=== PATIENT | male | born 1925 | race Hispanic/Latino ===

== ENCOUNTER 2017-01-17 20:39 | Inpatient (IN) | payer MEDICARE ==
[2017-01-17] MEDS ORDERED: Sodium Chloride 0.9% 1,000 ML IV STA (21:28)
[2017-01-17] MEDS ORDERED: Iohexol 240 (50 ml) PO ONE (21:29)
[2017-01-17 21:55] LABS: BASO % 0.4 % (0.0-2.0); EOS # 0.1 K/uL (0.0-0.7); EOS % 0.7 % (0.0-4.0); HEMATOCRIT 40.3 % (35.0-51.0); LYMPH # 1.3 K/uL (1.0-4.3); MEAN CELL VOLUME 95.7 fl (80.0-94.0); MEAN CORPUSCULAR HEMOGLOBIN 31.5 pg (27.0-31.0); MEAN CORPUSCULAR HGB CONC 32.9 g/dL (33.0-37.0); MEAN PLATELET VOLUME 9.3 fl (7.2-11.7); MONO # 0.9 K/uL (0.0-0.8); MONO % 9.6 % (0.0-10.0); NEUT # 7.5 K/uL (1.8-7.0); NEUT % 76.3 % (50.0-75.0); RED CELL DISTRIBUTION WIDTH 14.4 % (11.5-14.5); WHITE BLOOD COUNT 9.8 K/uL (4.8-10.8)
[2017-01-17] MEDS ORDERED: Iohexol 240 (50 ml) ONE (22:16)
--- NOTE | 2017-01-17 22:19 | ED PDOC ---
HPI: Abdomen Time Seen by Provider: 01/17/17 21:09 Chief Complaint (Nursing): GI Problem Chief Complaint (Provider): Diarrhea and nausea History Per: Family History/Exam Limitations: no limitations Onset/Duration Of Symptoms: Days (x 5) Current Symptoms Are (Timing): Still Present Associated Symptoms: Nausea, Diarrhea Additional Complaint(s): Marshall is an 89 y/o male with a past medical history of colon cancer, esophageal cancer, cardiac disease, and diabetes, who presents to the ED for complaints of diarrhea. Family states he is having 4-5 episodes of watery diarrhea daily since Saturday. Also complaining of generalized weakness and nausea. Seen by PMD, Dr. Ashby who prescribed him Zofran and Pepcid. Later, patient told his son I dont think Im going to make it prompting this ED visit. PMD: Isma Past Medical History Reviewed: Historical Data, Nursing Documentation, Vital Signs Vital Signs: Last Vital Signs Temp 97.6 F 01/17/17 20:57 Pulse 72 01/18/17 00:32 Resp 16 01/18/17 00:32 BP 122/81 01/18/17 00:32 Pulse Ox 97 01/18/17 01:43 - Medical History PMH: COPD, HTN, Hypercholesterolemia Denies: Chronic Kidney Disease - Surgical History Surgical History: CABG (x3), Carotid Endarterectomy (Left), Coronary Stent (x6) - Family History Family History: States: Unknown Family Hx - Home Medications Home Medications: Ambulatory Orders Medication Instructions Recorded Acetaminophen/Codeine 1 tab PO Q4H 02/04/14 [Tylenol/Codeine 300 MG/30 MG] Amlodipine Besylate 10 mg PO DAILY 02/04/14 Hydralazine Hydrochloride 25 mg PO BID 02/04/14 [Hydralazine HCl] Metformin Hydrochloride/Fadia 1 tab PO DAILY 02/04/14 [Janumet 500 mg-50 mg] Pravastatin Sodium [Pravastatin] 40 mg PO DAILY 02/04/14 - Allergies Allergies/Adverse Reactions: Allergies Allergy/AdvReac Type Severity Reaction Status Date / Time No Known Allergies Allergy Verified 02/04/14 08:48 Review of Systems ROS Statement: Except As Marked, All Systems Reviewed And Found Negative Constitutional: Negative for: Fever Gastrointestinal: Positive for: Nausea, Diarrhea Neurological: Positive for: Weakness (generalized) Physical Exam - Reviewed Nursing Documentation Reviewed: Yes Vital Signs Reviewed: Yes - Physical Exam Appears: Positive for: Non-toxic, No Acute Distress Head Exam: Positive for: ATRAUMATIC, NORMAL INSPECTION, NORMOCEPHALIC Skin: Positive for: Normal Color, Warm, Dry Eye Exam: Positive for: EOMI, Normal appearance, PERRL ENT: Positive for: Other (dry mucus membranes) Neck: Positive for: Normal, Painless ROM, Supple Cardiovascular/Chest: Positive for: Regular Rate, Rhythm. Negative for: Murmur Respiratory: Positive for: Normal Breath Sounds. Negative for: Accessory Muscle Use, Respiratory Distress Gastrointestinal/Abdominal: Positive for: Soft, Tenderness (to epigastric region ) Back: Positive for: Normal Inspection Extremity: Positive for: Normal ROM. Negative for: Pedal Edema, Deformity Neurologic/Psych: Positive for: Alert, Oriented. Negative for: Motor/Sensory Deficits - Laboratory Results Result Diagrams: 01/17/17 21:35 01/17/17 22:00 - ECG O2 Sat by Pulse Oximetry: 97 (RA) Pulse Ox Interpretation: Normal - Radiology X-Ray: Interpreted by De X-Ray Interpretation: No Acute Disease - Critical Care Total Time (In Min): 60 Medical Decision Making Medical Decision Making: Time: 21:27 Impression: Gastroenteritis Initial Plan: --CMP --Lipase --Troponin I --CBC --Blood type and screen --NS IV 1000 ml at 500 mls/hr --Iohexol 50 ml PO --Protonix 40 mg IV --Reglan 10 mg IV --Urinalysis --Blood and urine cultures --CXR 2 views --EKG --Patient admitted to ED-OBS for abdominal pain --Pending CT Abdomen/Pelvis PO & IV contrast *See ED-OBS tab for all future documentation Scribe Attestation: Documented by Liseth Pro, acting as a scribe for Laureano Cazares MD Provider Scribe Attestation: All medical record entries made by the Scribe were at my direction and personally dictated by me. I have reviewed the chart and agree that the record accurately reflects my personal performance of the history, physical exam, medical decision making, and the department course for this patient. I have also personally directed, reviewed, and agree with the discharge instructions and disposition. ED OBSERVATION Date of observation admission: 01/17/17 Time of observation admission: 21:27 - Observation admission statement Patient is being placed in observation because:: Abdominal pain - Goals of Observation Goals of observation are:: Resolution of symptoms - Progress Note Progress Note: 01/17/17 21:30 Patient is resting comfortably. Vital signs stable. Labs reviewed, significant for elevated Troponin 01/17/17 22:49 Paged Cardiology on-call, Dr. Noble, for consult 01/17/17 23:15 Patient with elevated troponin and ST depression in lead 6 of EKG. Spoke with Dr. Huber who recommends ASA and Lipitor now and wait for CT scan to r/o pancreatitis or other surgical pathology. If negative, anticoagulate with Heprin. 01/18/17 00:40 Patient is resting comfortably. Vital signs stable. 01/18/17 01:20 CT FINDINGS There is a small left pleural effusion with associated atelectasis. The liver, spleen, gallbladder, and pancreas appear grossly normal on this non- contrast study. There is mild bilateral perinephric stranding. No hydronephrosis. No obstructing calculi. Subcentimeter hypoattenuating lower right renal lesion unchanged. The patient appears to be status post right hemicolectomy. Gastric distention with oral contrast and ingested material. There is diffuse distention of the small bowel with fluid through to the anastomosis with the proximal transverse colon. There is stool present within a few distal small bowel loops in the right abdomen/pelvis. A small amount of fluid is present in the colon; however it is essentially unremarkable without significant dilation, wall thickening or stranding. IMPRESSION: Small left pleural effusion with atelectasis. Right hemicolectomy. Diffuse distention of the small bowel with fluid. Small bowel ileus or diffuse enteritis could produce this appearance. Disposition - Clinical Impression Clinical Impression: NSTEMI (non-ST elevated myocardial infarction), Enteritis, Acute renal failure - Patient ED Disposition Is Patient to be Admitted: Yes - Disposition Disposition Time: 21:27 Condition: FAIR - Pt Status Changed To: Hospital Disposition Of: Observation
[2017-01-17 22:22] LABS: ALB/GLOB RATIO 1.3 (1.0-2.1); BILIRUBIN,TOTAL 0.6 mg/dl (0.2-1.3); CALCIUM 10.1 mg/dL (8.4-10.2); POTASSIUM 4.2 MMOL/L (3.6-5.0); TOTAL PROTEIN 8.2 G/DL (6.3-8.2)
[2017-01-17 22:36] LABS: TROPONIN I 4.65 ng/mL (0.00-0.120)
[2017-01-17 22:54] LABS: RBC URINE 3 /hpf (0-3); URINE BACTERIA RARE (<OCC); URINE BILIRUBIN NEGATIVE (NEGATIVE); URINE BLOOD NEGATIVE (NEGATIVE); URINE COLOR AMBER (YELLOW); URINE GLUCOSE (UA) NEG (Normal); URINE KETONE NEGATIVE (NEGATIVE); URINE LEUKOCYTE ESTERASE NEG Leu/uL (Negative); URINE PROTEIN 100 mg/dL (NEGATIVE); URINE UROBILINOGEN 0.2-1.0 mg/dL (0.2-1.0); WBC URINE 2 /hpf (0-5)
--- NOTE | 2017-01-18 01:20 | CT ---
EXAM: CT Abdomen and Pelvis Without Intravenous Contrast EXAM DATE/TIME: 01/17/2017 9:27 PM CLINICAL HISTORY: 89 years old, male; Pain; Abdominal pain; Epigastric; Prior surgery; Surgery date: 6+ months; Surgery type: Cabgx3 coronary stent; Patient HX: Chart inluded; Additional info: Epig pain TECHNIQUE: Axial computed tomography images of the abdomen and pelvis without intravenous contrast. All CT scans at this facility use one or more dose reduction techniques, viz.: automated exposure control; ma/kV adjustment per patient size (including targeted exams where dose is matched to indication; i.e. head); or iterative reconstruction technique. Coronal and sagittal reformatted images were created and reviewed. COMPARISON: CT ABD/PELV W/ ORAL A 10/23/2011 8:30:07 PM no report FINDINGS: There is a small left pleural effusion with associated atelectasis. The liver, spleen, gallbladder, and pancreas appear grossly normal on this non-contrast study. There is mild bilateral perinephric stranding. No hydronephrosis. No obstructing calculi. Subcentimeter hypoattenuating lower right renal lesion unchanged. The patient appears to be status post right hemicolectomy. Gastric distention with oral contrast and ingested material. There is diffuse distention of the small bowel with fluid through to the anastomosis with the proximal transverse colon. There is stool present within a few distal small bowel loops in the right abdomen/pelvis. A small amount of fluid is present in the colon; however it is essentially unremarkable without significant dilation, wall thickening or stranding. IMPRESSION: Small left pleural effusion with atelectasis. Right hemicolectomy. Diffuse distention of the small bowel with fluid. Small bowel ileus or diffuse enteritis could produce this appearance.
--- NOTE | 2017-01-18 01:41 | CP.PCM.HP ---
<Alber Hull - Last Filed: 01/18/17 06:13> History of Present Illness - History of Present Illness History of Present Illness: CC: NSTEMI 89 y/o male with a past medical history of colon cancer, esophageal cancer, cardiac disease, and diabetes admitted due to NSTEMI Patient initially presented to ED for evaluation of NBNB diarrhea. 4-5 episodes of watery diarrhea daily since Saturday. Also complained of generalized weakness and nausea. Found to have elevated initial troponin and NSTEMI in ED, along with increased lipase levels. CT abdo was negative for pancreatitis. ED Course: Lipase, CBC, cmp troponins Blood type and screen NS IV 1000 ml at 500 mls/hr Protonix 40 mg IV Reglan 10 mg IV Urinalysis Blood and urine cultures CXR 2 views EKG: ST depression in lead 6 of EKG + initial troponin of 4 01/17/17 22:49 Cardiology on-call, Dr. Noble, for consult 01/17/17 23:15 Patient with elevated troponin and ST depression in lead 6 of EKG. Spoke with Dr. Huber who recommends ASA and Lipitor now and wait for CT scan to r/o pancreatitis or other surgical pathology. If negative, anticoagulate with Heprin. PMD: Dr Ashby Present on Admission - Present on Admission Any Indicators Present on Admission: No History of DVT/PE: No Past Patient History - Past Medical History & Family History Past Medical History?: Yes - Past Social History Smoking Status: Never Smoked - CARDIAC Hx Hypercholesterolemia: Yes Hx Hypertension: Yes - PULMONARY Hx Chronic Obstructive Pulmonary Disease (COPD): Yes - NEUROLOGICAL Hx Neurological Disorder: Yes HX Cerebrovascular Accident: Yes (mini stroke wR small finger numb) - HEENT Hx HEENT Problems: No - RENAL Hx Chronic Kidney Disease: No - ENDOCRINE/METABOLIC Hx Endocrine Disorders: Yes Hx Diabetes Mellitus Type 2: Yes - HEMATOLOGICAL/ONCOLOGICAL Hx Blood Transfusions: Yes Hx Cancer: Yes (Colon) Hx Chemotherapy: Yes - INTEGUMENTARY Hx Dermatological Problems: No - MUSCULOSKELETAL/RHEUMATOLOGICAL Hx Musculoskeletal Disorders: No - GASTROINTESTINAL Other/Comment: Colon CA - GENITOURINARY/GYNECOLOGICAL Hx Genitourinary Disorders: No - PSYCHIATRIC Hx Psychophysiologic Disorder: No Hx Substance Use: No - SURGICAL HISTORY Hx Carotid Endarterectomy: Yes (Left) Hx Coronary Artery Bypass Graft: Yes (x3) Hx Coronary Stent: Yes (x6) - ANESTHESIA Hx Anesthesia: Yes Hx Anesthesia Reactions: No Hx Malignant Hyperthermia: No Meds Allergies/Adverse Reactions: Allergies Allergy/AdvReac Type Severity Reaction Status Date / Time No Known Allergies Allergy Verified 02/04/14 08:48 Physical Exam - Constitutional Appears: No Acute Distress, Chronically Ill - Head Exam Head Exam: ATRAUMATIC - Eye Exam Eye Exam: EOMI Pupil Exam: PERRL - ENT Exam ENT Exam: Mucous Membranes Dry - Respiratory Exam Respiratory Exam: Clear to Auscultation Bilateral - Cardiovascular Exam Cardiovascular Exam: +S1, +S2 - GI/Abdominal Exam GI & Abdominal Exam: Hyperactive Bowel Sounds, Soft, Tenderness Additional comments: epigastric tenderness - Extremities Exam Extremities exam: Positive for: pedal pulses present - Neurological Exam Neurological exam: Alert, Oriented x3 - Psychiatric Exam Psychiatric exam: Normal Affect, Normal Mood - Skin Skin Exam: Dry, Warm Results - Vital Signs Recent Vital Signs: Last Vital Signs Temp 97.6 F 01/17/17 20:57 Pulse 72 01/18/17 00:32 Resp 16 01/18/17 00:32 BP 122/81 01/18/17 00:32 Pulse Ox 97 01/18/17 01:21 - Labs Result Diagrams: 01/17/17 21:35 01/17/17 22:00 Labs: Laboratory Results - last 24 hr 01/17/17 01/17/17 01/17/17 21:35 21:35 22:00 WBC 9.8 RBC 4.21 L Hgb 13.3 Hct 40.3 MCV 95.7 H MCH 31.5 H MCHC 32.9 L RDW 14.4 Plt Count 203 MPV 9.3 Neut % (Auto) 76.3 H Lymph % (Auto) 13.0 L Placer % (Auto) 9.6 Eos % (Auto) 0.7 Baso % (Auto) 0.4 Neut # 7.5 H Lymph # 1.3 Placer # 0.9 H Eos # 0.1 Baso # 0.0 Sodium 139 Potassium 4.2 Chloride 104 Carbon Dioxide 21 L Anion Gap 18 BUN 29 H Creatinine 1.7 H Est GFR ( Amer) 46 Est GFR (Non-Af Amer) 38 Random Glucose 122 H Calcium 10.1 Total Bilirubin 0.6 AST 61 H ALT 32 Alkaline Phosphatase 55 Troponin I 4.6500 H* Total Protein 8.2 Albumin 4.6 Globulin 3.6 Albumin/Globulin Ratio 1.3 Lipase 400 H Urine Color Urine Clarity Urine pH Ur Specific [place] Urine Protein Urine Glucose (UA) Urine Ketones Urine Blood Urine Nitrate Urine Bilirubin Urine Urobilinogen Ur Leukocyte Esterase Urine RBC (Auto) Urine Microscopic WBC Ur Squamous Epith Cells Urine Bacteria Hyaline Casts Blood Type B POSITIVE Antibody Screen Negative BBK History Checked Patient has bt 01/17/17 22:30 WBC RBC Hgb Hct MCV MCH MCHC RDW Plt Count MPV Neut % (Auto) Lymph % (Auto) Placer % (Auto) Eos % (Auto) Baso % (Auto) Neut # Lymph # Placer # Eos # Baso # Sodium Potassium Chloride Carbon Dioxide Anion Gap BUN Creatinine Est GFR ( Amer) Est GFR (Non-Af Amer) Random Glucose Calcium Total Bilirubin AST ALT Alkaline Phosphatase Troponin I Total Protein Albumin Globulin Albumin/Globulin Ratio Lipase Urine Color [place] Urine Clarity Cloudy Urine pH 5.0 Ur Specific [place] 1.020 Urine Protein 100 Urine Glucose (UA) Neg Urine Ketones Negative Urine Blood Negative Urine Nitrate Negative Urine Bilirubin Negative Urine Urobilinogen 0.2-1.0 Ur Leukocyte Esterase Neg Urine RBC (Auto) 3 Urine Microscopic WBC 2 Ur Squamous Epith Cells < 1 Urine Bacteria Rare Hyaline Casts 3-5 H Blood Type Antibody Screen BBK History Checked Assessment & Plan - Assessment and Plan (Free Text) Plan: 89 y/o male with a past medical history of colon cancer, esophageal cancer, cardiac disease, and diabetes admitted due to NSTEMI NSTEMI EKG: ST depression in lead 6 of EKG + initial troponin of 4 ED Course: Lipase 400, CBC, cmp Blood type and screen NS IV 1000 ml at 500 mls/hr Protonix 40 mg IV Reglan 10 mg IV Urinalysis Blood and urine cultures CXR CT abdo: negative for pancreatitis Cardiology consulted: Dr. Noble, recommends ASA and Lipitor, anticoagulate with Heprin admit to ICU npo c/w heparin drip 8ml/hr, lipitor 20 mg daily, coreg 6.25 PO Q12 troponins Q8 x 2 ECHO in AM repeat labs in AM Enteritis gastroenteritis v. C diff IVF follow up with BCx, stool Cx DM c/w home meds CAD c/w home meds DVT PPx pt on heparin drip <Leonid Ashby - Last Filed: 01/21/17 06:48> Results - Vital Signs Recent Vital Signs: Last Vital Signs Temp 97.9 F 01/21/17 04:43 Pulse 49 L 01/21/17 04:43 Resp 20 01/21/17 04:43 BP 164/57 H 01/21/17 04:43 Pulse Ox 96 01/21/17 04:43 - Labs Result Diagrams: 01/19/17 06:00 01/19/17 06:00 Labs: Laboratory Results - last 24 hr 01/20/17 01/20/17 01/20/17 05:30 11:13 15:54 APTT 32.5 D POC Glucose (mg/dL) 259 H 215 H 01/20/17 01/21/17 21:31 05:11 APTT POC Glucose (mg/dL) 128 H 122 H Attending/Attestation - Attestation I have personally seen and examined this patient.: Yes I have fully participated in the care of the patient.: Yes I have reviewed all pertinent clinical information: Yes
--- NOTE | 2017-01-18 01:44 | CP.PCM.CON ---
History of Present Illness - History of Present Illness History of Present Illness: PCP; Dr Ashby Reason For Consult: Critical care Management Chief Complaint: Diarrhea/Dizziness HPI: 89 years old male with hx of HLD, HTN, DM II, CAD s/p Stents and CABG, comes with 5 days of non- bloody diarrhea, 4-5 episodes daily. associated is nausea with generalized weakness but no abdominal pains, fever, diaphoresis, nor actual vomiting. No chest pains nor palpitations. He saw his PCP who prescribed Zofran and Pepcid. Because of the persistence of the symptoms he was brought to the ED at [facility]. PMH: COPD; HTN; HLD;COPD: CVA; DM II; Colon and esophageal Cancer s/p Chemo and radiotherapy, no surgery to the abdomen; PSH: CABG (x3), 6X Stents, Left Carotid Endarterectomy , Coronary Stent (x6); cataract surgery SH: Live with family, Quit smoking 45 years ago; Occasional alcohol use; No illegal drug use; FH: Unknown family hx Allergies: NKDA Review of Systems - Constitutional Constitutional: Anorexia, Headache, Weakness. absent: Chills, Fever, Lethargy - EENT Eyes: Requires Corrective Lenses. absent: Diplopia, Floaters, Sees Flashes Ears: absent: Decreased Hearing, Ear Discharge, Ear Pain, Tinnitus Nose/Mouth/Throat: absent: Epistaxis, Nasal Congestion, Sinus Pain, Sinus Pressure Additional comments: Upper and lower dentures - Cardiovascular Cardiovascular: Chest Pain, Dyspnea, Edema, Lightheadedness - Respiratory Respiratory: Cough. absent: Stridor, Chest Congestion - Gastrointestinal Gastrointestinal: Diarrhea, Nausea. absent: Constipation, Hematochezia, Vomiting - Genitourinary Genitourinary: absent: Dysuria, Flank Pain, Hematuria, Urinary Frequency - Musculoskeletal Musculoskeletal: Muscle Weakness. absent: Arthralgias, Back Pain - Integumentary Integumentary: absent: Pruritus, Rash, Skin Ulcer, Sores, Striae, Swelling - Neurological Neurological: Dizziness, Headaches, Weakness. absent: Confusion, Focal Weakness - Psychiatric Psychiatric: absent: Anxiety, Depression, Panic Attacks - Endocrine Endocrine: absent: Palpitations, Polydipsia, Polyphagia, Polyuria - Hematologic/Lymphatic Hematologic: absent: Easy Bleeding, Easy Bruising Past Patient History - Past Medical History & Family History Past Medical History?: Yes - Past Social History Smoking Status: Former Smoker Chewing Tobacco Use: No Cigar Use: No Alcohol: Occasional Drugs: Denies Home Situation {Lives}: With Family - CARDIAC Hx Hypercholesterolemia: Yes Hx Hypertension: Yes - PULMONARY Hx Chronic Obstructive Pulmonary Disease (COPD): Yes - NEUROLOGICAL Hx Neurological Disorder: Yes HX Cerebrovascular Accident: Yes (mini stroke wR small finger numb) - HEENT Hx HEENT Problems: No - RENAL Hx Chronic Kidney Disease: No - ENDOCRINE/METABOLIC Hx Endocrine Disorders: Yes Hx Diabetes Mellitus Type 2: Yes - HEMATOLOGICAL/ONCOLOGICAL Hx Blood Transfusions: Yes Hx Cancer: Yes (Colon) Hx Chemotherapy: Yes - INTEGUMENTARY Hx Dermatological Problems: No - MUSCULOSKELETAL/RHEUMATOLOGICAL Hx Musculoskeletal Disorders: No - GASTROINTESTINAL Hx Gastrointestinal Disorders: No Other/Comment: Colon CA - GENITOURINARY/GYNECOLOGICAL Hx Genitourinary Disorders: No - PSYCHIATRIC Hx Psychophysiologic Disorder: No Hx Substance Use: No - SURGICAL HISTORY Hx Carotid Endarterectomy: Yes (Left) Hx Coronary Artery Bypass Graft: Yes (x3) Hx Coronary Stent: Yes (x6) - ANESTHESIA Hx Anesthesia: Yes Hx Anesthesia Reactions: No Hx Malignant Hyperthermia: No Meds Allergies/Adverse Reactions: Allergies Allergy/AdvReac Type Severity Reaction Status Date / Time No Known Allergies Allergy Verified 02/04/14 08:48 - Medications Medications: Current Medications Atorvastatin Calcium (Lipitor) 20 mg PO DAILY NOAH Carvedilol (Coreg) 6.25 mg PO Q12 NOAH Heparin Sodium/Dextrose (Heparin 25,000 Units/250ml In D5w) 25,000 units in 250 mls @ 8 mls/hr IV .Q24H NOAH PRN Reason: Protocol Physical Exam - Constitutional Appears: No Acute Distress - Head Exam Head Exam: ATRAUMATIC, NORMAL INSPECTION, NORMOCEPHALIC - Eye Exam Eye Exam: EOMI, Normal appearance Pupil Exam: NORMAL ACCOMODATION, PERRL - ENT Exam ENT Exam: Mucous Membranes Dry, Normal Exam, Normal External Ear Exam, Normal Oropharynx - Neck Exam Neck exam: Positive for: Full Rom, Normal Inspection. Negative for: Lymphadenopathy, Tenderness - Respiratory Exam Respiratory Exam: absent: Clear to Auscultation Bilateral, Rales, Rhonchi, Wheezes - Cardiovascular Exam Cardiovascular Exam: REGULAR RHYTHM, RRR, +S1, +S2. absent: Gallop, JVD - GI/Abdominal Exam GI & Abdominal Exam: Normal Bowel Sounds, Soft. absent: Organomegaly, Tenderness - Rectal Exam Rectal Exam: Deferred - Extremities Exam Extremities exam: Positive for: normal inspection. Negative for: calf tenderness, full ROM, joint swelling - Back Exam Back exam: CVA tenderness (L), CVA tenderness (R), NORMAL INSPECTION - Neurological Exam Neurological exam: Alert, CN II-XII Intact, Oriented x3, Reflexes Normal - Psychiatric Exam Psychiatric exam: Normal Affect, Normal Mood - Skin Skin Exam: Dry, Intact, Normal Color, Warm Results - Vital Signs Recent Vital Signs: Last Vital Signs Temp 97.6 F 01/17/17 20:57 Pulse 72 01/18/17 00:32 Resp 16 01/18/17 00:32 BP 122/81 01/18/17 00:32 Pulse Ox 97 01/18/17 01:43 - Labs Result Diagrams: 01/17/17 21:35 01/17/17 22:00 Labs: Laboratory Results - last 24 hr 01/17/17 01/17/17 01/17/17 21:35 21:35 22:00 WBC 9.8 RBC 4.21 L Hgb 13.3 Hct 40.3 MCV 95.7 H MCH 31.5 H MCHC 32.9 L RDW 14.4 Plt Count 203 MPV 9.3 Neut % (Auto) 76.3 H Lymph % (Auto) 13.0 L [place] % (Auto) 9.6 Eos % (Auto) 0.7 Baso % (Auto) 0.4 Neut # 7.5 H Lymph # 1.3 [place] # 0.9 H Eos # 0.1 Baso # 0.0 Sodium 139 Potassium 4.2 Chloride 104 Carbon Dioxide 21 L Anion Gap 18 BUN 29 H Creatinine 1.7 H Est GFR ( Amer) 46 Est GFR (Non-Af Amer) 38 Random Glucose 122 H Calcium 10.1 Total Bilirubin 0.6 AST 61 H ALT 32 Alkaline Phosphatase 55 Troponin I 4.6500 H* Total Protein 8.2 Albumin 4.6 Globulin 3.6 Albumin/Globulin Ratio 1.3 Lipase 400 H Urine Color Urine Clarity Urine pH Ur Specific [place] Urine Protein Urine Glucose (UA) Urine Ketones Urine Blood Urine Nitrate Urine Bilirubin Urine Urobilinogen Ur Leukocyte Esterase Urine RBC (Auto) Urine Microscopic WBC Ur Squamous Epith Cells Urine Bacteria Hyaline Casts Blood Type B POSITIVE Antibody Screen Negative BBK History Checked Patient has bt 01/17/17 22:30 WBC RBC Hgb Hct MCV MCH MCHC RDW Plt Count MPV Neut % (Auto) Lymph % (Auto) [place] % (Auto) Eos % (Auto) Baso % (Auto) Neut # Lymph # [place] # Eos # Baso # Sodium Potassium Chloride Carbon Dioxide Anion Gap BUN Creatinine Est GFR ( Amer) Est GFR (Non-Af Amer) Random Glucose Calcium Total Bilirubin AST ALT Alkaline Phosphatase Troponin I Total Protein Albumin Globulin Albumin/Globulin Ratio Lipase Urine Color [place] Urine Clarity Cloudy Urine pH 5.0 Ur Specific [place] 1.020 Urine Protein 100 Urine Glucose (UA) Neg Urine Ketones Negative Urine Blood Negative Urine Nitrate Negative Urine Bilirubin Negative Urine Urobilinogen 0.2-1.0 Ur Leukocyte Esterase Neg Urine RBC (Auto) 3 Urine Microscopic WBC 2 Ur Squamous Epith Cells < 1 Urine Bacteria Rare Hyaline Casts 3-5 H Blood Type Antibody Screen BBK History Checked - EKG Data EKG comments: NSR with RBBB and LAD - Imaging and Cardiology Chest x-ray Status: Image reviewed by me Additional comment: No Infiltrate CT scan - abdomen Additional comment: FINDINGS: There is a small left pleural effusion with associated atelectasis. The liver, spleen, gallbladder, and pancreas appear grossly normal on this non- contrast study. There is mild bilateral perinephric stranding. No hydronephrosis. No obstructing calculi. Subcentimeter hypoattenuating lower right renal lesion unchanged. The patient appears to be status post right hemicolectomy. Gastric distention with oral contrast and ingested material. There is diffuse distention of the small bowel with fluid through to the anastomosis with the proximal transverse colon. There is stool present within a few distal small bowel loops in the right abdomen/pelvis. A small amount of fluid is present in the colon; however it is essentially unremarkable without significant dilation, wall thickening or stranding. IMPRESSION: Small left pleural effusion with atelectasis. Right hemicolectomy. Diffuse distention of the small bowel with fluid. Small bowel ileus or diffuse enteritis could produce this appearance. Assessment & Plan - Assessment and Plan (Free Text) Assessment: #. Diffuse Enteritis #. NSTEMI #. Acute Renal Failure #. DM #. HTN Plan: 89 years old male with hx of HLD, HTN, DM II, CAD s/p Stents and CABG, comes with 5 days of non- bloody diarrhea, 4-5 episodes daily. associated is nausea with generalized weakness. No abdominal pains, fever, diaphoresis, nor chest pains. #. Diffuse Enteritis, etiology unclear - Follow stool for Culture/ C Difficile toxins - IV Fluids - Zofran for nausea and vomiting #. NSTEMI - Consult cardiology Dr Noble - Serial Troponin - Serial EKG - Lipid profile - ECHO - ASA/ Statin/ Heparin IV drip/ Beta Esmer #. Acute Renal Failure - IV Fluid - Follow Renal labs #. DM II - Diabetic Diet - Regular Insulin Sliding scale according to accucheck - Hold Metformin because of the elevated Creatinine. - HbA1c #. HTN - Amlodipine/ Coreg/Hydralazine #. Stress Ulcer prophylaxis with Pantoprazole #. Code status: Full - Date & Time Date: 01/18/17 Time: 01:43
[2017-01-18] MEDS: Heparin 25,000units in D5W 25,000 UNITS/250 ML BAG IV SCH (01:52)
[2017-01-18 03:21] VITALS: BMI 22.6
[2017-01-18 03:25] LABS: PARTIAL THROMBOPLASTIN TIME 148.9 Seconds (25.6-37.1)
[2017-01-18] MEDS: Sodium Chloride 0.9% 1,000 ML IV SCH ×2 (04:18→16:40)
[2017-01-18 05:57] LABS: TROPONIN I 3.67 ng/mL (0.00-0.120)
[2017-01-18 06:15] LABS: HEMATOCRIT 34.3 % (35.0-51.0); MEAN CELL VOLUME 95.9 fl (80.0-94.0); MEAN CORPUSCULAR HEMOGLOBIN 31.7 pg (27.0-31.0); MEAN PLATELET VOLUME 9.6 fl (7.2-11.7); RED CELL DISTRIBUTION WIDTH 14.1 % (11.5-14.5); WHITE BLOOD COUNT 6.1 K/uL (4.8-10.8)
[2017-01-18] MEDS ORDERED: Insulin Regular 100 units/ml SC SCH (07:30)
[2017-01-18 08:27] LABS: ALB/GLOB RATIO 1.2 (1.0-2.1); BILIRUBIN,TOTAL 0.4 mg/dl (0.2-1.3); CALCIUM 9.3 mg/dL (8.4-10.2); POTASSIUM 4.3 MMOL/L (3.6-5.0); TOTAL PROTEIN 6.9 G/DL (6.3-8.2)
[2017-01-18] MEDS ORDERED: HYDRALAZINE HYDROCHLORIDE PO SCH (09:00)
[2017-01-18] MEDS ORDERED: AMLODIPINE BESYLATE 10 MG PO SCH (09:00)
--- NOTE | 2017-01-18 09:56 | RAD ---
HISTORY: Abdominal pain COMPARISON: Comparison made with chest radiograph 10/01/2013 TECHNIQUE: Chest PA and lateral FINDINGS: LUNGS: Suspect minor left basilar atelectasis and or scarring changes PLEURA: No significant pleural effusion identified. No pneumothorax apparent. CARDIOVASCULAR: Sternotomy wires and CABG clips again noted. Heart appears enlarged. Aorta is slightly ectatic and uncoiled. OSSEOUS STRUCTURES: No significant abnormalities. VISUALIZED UPPER ABDOMEN: Mild multilevel degenerative spondylosis of the thoracic spine OTHER FINDINGS: None. IMPRESSION: Suspect minor left basilar atelectasis and or scarring Cardiomegaly.
[2017-01-18 11:14] LABS: AMYLASE 166 U/L (30-110); LIPASE 325 U/L (23-300)
[2017-01-18] MEDS: Insulin Regular 100 units/ml SC SCH ×3 (11:42→22:30)
[2017-01-18] MEDS ORDERED: Phytonadione 10 mg/ml Inj (Adult) SC SCH (12:45)
--- NOTE | 2017-01-18 16:19 | CP.PCM.PCO ---
<Eugene Santana - Last Filed: 01/18/17 16:04> Addendum Addendum: 01/18/17 16:04 Patient seen and examined this AM with Dr. Veronica. No apparent distress. Sitting upright in bed. States he feels ok. No chest pain, nausea, vomiting, abdominal pain. Diarrhea was watery but has subsided. No other complaints offered. Family will be back. Vitals stable. Gen: no apparent distress. Pleasant, calm, cooperative. cardio: HR 50s on monitor, distant heart sounds. lungs: clear to auscultation bilaterally abdomen: no tenderness, soft, +BS ext: no edema a/p: 89 year old with NSTEMI and acute kidney injury with sinus bradycardia. KARL improving. Remains bradycardic. -cardiac monitoring -on heparin drip, will continue -regular diet as tolerated -Dr. Noble on consult for cardio, echo pending report. awaiting further recopmmendations -GI consult: Dr. Dawn. -f/u repeat labs <Matias Veronica - Last Filed: 01/23/17 07:03> Attending/Attestation - Attestation I have personally seen and examined this patient.: Yes I have fully participated in the care of the patient.: Yes I have reviewed all pertinent clinical information: Yes
--- NOTE | 2017-01-18 19:34 | CARD ---
APPROVED REPORT EXAM: Two-dimensional and M-mode echocardiogram with Doppler and color Doppler. Other Information Quality : GoodRhythm : NSR INDICATION LV Function:SystolicDiastolic ID Surgery/Intervention CABD DIMENSIONS IVSd1.32 (0.7-1.1cm)LVDd4.98 (3.9-5.9cm) LVOT Diameter2.12 (1.8-2.4cm)PWd0.74 (0.7-1.1cm) IVSs1.51 (0.8-1.2cm)LVDs3.48 (2.5-4.0cm) FS (%) 30.2 %PWs1.42 (0.8-1.2cm) M-Mode DIMENSIONS Left Atrium (MM)4.99 (2.5-4.0cm)IVSd1.30 (0.7-1.1cm) Aortic Root2.70 (2.2-3.7cm)LVDd5.35 (4.0-5.6cm) Aortic Cusp Exc.1.68 (1.5-2.0cm)PWd1.16 (0.7-1.1cm) IVSs1.74 cmFS (%) 40 % LVDs3.23 (2.0-3.8cm)PWs2.10 cm Mitral Valve MV E Josjbtcy05.0cm/sMV DECEL [id number] A Bhxuwvfm38.9cm/s MV FIR02aqI/A ratio2.4MVA (PHT)2.88cm2 TDI Lateral E' Peak V9.61cm/sMedial E' Peak V5.21cm/sE/Lateral E'7.5 E/Medial E'13.8 Pulmonary Valve PV Peak Yezmvmfy334.7cm/s Tricuspid Valve TR Peak Etvaneox473ls/sRAP SVAQTLVL13oqHiRS Peak Gr.27mmHg UTHA69tcOx LEFT VENTRICLE The left ventricle is normal size. There is moderate asymmetric left ventricular hypertrophy. The left ventricular function is normal. The left ventricular ejection fraction is 50-55% There is normal LV segmental wall motion. Transmitral Doppler flow pattern is Grade II-pseudonormal filling dynamics. No left ventricle thrombus noted on this study. There is no ventricular septal defect visualized. There is no left ventricular aneurysm. There is no mass noted in the left ventricle. RIGHT VENTRICLE The right ventricle is normal size. There is normal right ventricular wall thickness. The right ventricular systolic function is normal. ATRIA The left atrium is mildly dilated. The right atrium size is normal. The interatrial septum is intact with no evidence for an atrial septal defect. AORTIC VALVE The aortic valve is mildly sclerotic. No aortic regurgitation is present. There is no aortic valvular stenosis. There is no aortic valvular vegetation. MITRAL VALVE The mitral valve is normal in structure and function. There is no evidence of mitral valve prolapse. There is no mitral valve stenosis. Mitral regurgitation is moderate to severe. TRICUSPID VALVE The tricuspid valve is normal in structure and function. There is mild tricuspid regurgitation. Right ventricular systolic pressure is estimated at 30-40 mmHg. There is no tricuspid valve prolapse or vegetation. There is no tricuspid valve stenosis. PULMONIC VALVE The pulmonary valve is normal in structure and function. There is no pulmonic valvular regurgitation. There is no pulmonic valvular stenosis. GREAT VESSELS The aortic root is normal in size. The ascending aorta is normal in size. The IVC is normal in size and collapses >50% with inspiration. PERICARDIAL EFFUSION The pericardium appears normal. There is no pleural effusion. <Conclusion> Normal LV systolic function Asymmetric Septal Hypertrophy Moderate to Severe Mitral Regurgitation Aortic Valve Sclerosis
--- NOTE | 2017-01-18 19:55 | CARD ---
APPROVED REPORT EKG Measurement Heart [id number] <Conclusion> Sinus bradycardia with premature atrial complexes Left axis deviation Right bundle branch block T wave abnormality, consider lateral ischemia Abnormal ECG
[2017-01-19] MEDS: Heparin 25,000units in D5W 25,000 UNITS/250 ML BAG IV SCH (01:58)
--- NOTE | 2017-01-19 05:52 | CON ---
DATE: CARDIOLOGY CONSULTATION REASON FOR CONSULTATION: Acute myocardial infarction. HISTORY OF PRESENT ILLNESS: The patient is an 89-year-old male who has a history of coronary artery disease, status post quadruple bypass surgery at [facility] 12 years ago. The patient also known to have both esophageal and colon cancer from 5 years ago. He underwent partial colectomy at [facility] and received chemotherapy and radiation therapy for his esophageal cancer at [facility] in [facility] and the patient also has history of asymptomatic bradycardia for which no pacemaker is indicated by his indoor landscape architect. The patient presented because of nausea, diarrhea and abdominal discomfort. Patient denies any history of chest pain. Cardiac enzymes were noted to be elevated. SOCIAL HISTORY: Patient is occasional wine drinker. He is a nonsmoker. MEDICATIONS: Hydralazine 25 mg twice a day, Coreg 6.25 mg twice a day, aspirin 81 mg once a day, intravenous heparin infusion and therapeutic regimen for acute coronary syndrome, Lipitor 20 mg once a day, Norvasc 10 mg once a day, normal saline at 75 mL an hour, Zofran 4 mg intravenously q. 4 hours p.r.n. PAST MEDICAL HISTORY: Coronary artery disease status post coronary artery bypass surgery at 12 years ago at [facility], history of carcinoma status post chemotherapy and radiation therapy at [facility] 5 years ago and history of colon cancer status post partial colectomy about 5 years ago at [facility]. PHYSICAL EXAMINATION: GENERAL: The patient is an elderly male who does not appear to be in any distress. VITAL SIGNS: Blood pressure 147/56, heart rate 51, temperature 97.9, respiration 17. HEENT: Normocephalic. NECK: No JVD. CHEST: Clear. HEART: S1 and S2 regular. ABDOMEN: Soft. EXTREMITIES: No edema or calf tenderness. LABORATORY DATA: Hemoglobin and hematocrit 11.3 and 34.3, white count 6.1, platelet count 170,000. SMA-7: Sodium 139, potassium 4.3, chloride 107, CO2 22, glucose 128, BUN 27, creatinine 1.4. Troponins were 3.67 and 3.46. Yesterday, lipase was 400 and today's level is 325, amylase 166. EKG revealed sinus bradycardia at the rate of 51, right bundle branch block, left ischemic ST-T wave changes. Abdomen and pelvic CT scan revealed small left pleural effusion with atelectasis, right hemicolectomy, diffuse distention of the small bowel with fluid, small bowel ileus or diffuse . ASSESSMENT: 1. Status post non-ST elevation myocardial infarction. 2. Consider small bowel ileus or enteritis. 3. Mild adrenal insufficiency. 4. Rule out pancreatitis, the lipase level was elevated and still elevated. RECOMMENDATION: Continue hydralazine at 25 mg twice a day, Coreg at 6.25 mg twice a day, hold for heart rate below 60, aspirin 81 mg once a day, therapeutic intravenous heparin regimen for acute coronary syndrome. Lipitor at 20 mg once a day. The case was discussed last night in detail with emergency room physician and the above medical approach was approved. The case was also discussed with the patient's son at the bedside. A cardiac catheterization is indicated as per gastrointestinal clearance and GI consultation has been requested from the patient's former sharepoint designer developer; however, the patient's son requested that cardiac catheterization has to be performed at [facility] and upon the advise of his own indoor landscape architect Dr. Hawthorne. Dayne Noble MD
[2017-01-19 07:53] LABS: HEMATOCRIT 32.7 % (35.0-51.0); MEAN CELL VOLUME 94.9 fl (80.0-94.0); MEAN CORPUSCULAR HEMOGLOBIN 32.5 pg (27.0-31.0); MEAN CORPUSCULAR HGB CONC 34.3 g/dL (33.0-37.0); RED CELL DISTRIBUTION WIDTH 14.1 % (11.5-14.5); WHITE BLOOD COUNT 5.2 K/uL (4.8-10.8)
[2017-01-19 07:58] LABS: PARTIAL THROMBOPLASTIN TIME 41.7 Seconds (25.6-37.1)
[2017-01-19] MEDS: Insulin Regular 100 units/ml SC SCH ×4 (08:00→21:33)
[2017-01-19 08:59] LABS: BLOOD UREA NITROGEN 18 mg/dl (9-20); CALCIUM 9.1 mg/dL (8.4-10.2); CARBON DIOXIDE 22 mmol/L (22-30); CHLORIDE 110 mmol/L (98-107); GFR AFRICAN-AMERICAN > 60; GLUCOSE,RANDOM 147 mg/dL (75-110); POTASSIUM 4.3 MMOL/L (3.6-5.0); SODIUM 139 mmol/l (132-148)
[2017-01-19] MEDS ORDERED: Heparin 25,000units in D5W 25,000 UNITS/250 ML BAG IV SCH (09:15)
--- NOTE | 2017-01-19 09:36 | CARD ---
APPROVED REPORT EKG Measurement Heart [id number] [place] 180P84 [id number] <Conclusion> Normal sinus rhythm Right bundle branch block Left anterior fascicular block Bifascicular block Cannot rule out Inferior infarct (masked by fascicular block?), age undetermined Abnormal ECG
[2017-01-19] MEDS ORDERED: Heparin Sodium (Porcine) 1,000 U/ML 30ML IV ONE (10:26)
--- NOTE | 2017-01-19 11:48 | CP.PCM.PN ---
<Eugene Santana - Last Filed: 01/19/17 11:49> Subjective - Date & Time of Evaluation Date of Evaluation: 01/19/17 Time of Evaluation: 11:41 - Subjective Subjective: No acute overnight events. Patient seen and examined bedside. Continues to complain of watery stool x 1 today. No chest pain, dyspnea, abdominal pain, nausea, vomiting. Tolerating diet. Continue with Heparin drip. Case d/w Dr. Noble who agrees pt needs catheterization but was declined. Discussed treatment plan with son, whose main concern is patients diarrhea. Explained severity of patients heart condition and need for catheterization, he would like this done at [facility] where his paid intern is. I called Dr. Hawthorne's office and left message, will try and reach out again. Objective - Vital Signs/Intake and Output Vital Signs (last 24 hours): Temp Pulse Resp BP Pulse Ox 97.8 F 98 H 18 169/57 H 99 01/19/17 08:08 01/19/17 09:27 01/19/17 08:08 01/19/17 09:27 01/19/17 08:08 - Medications Medications: Current Medications Amlodipine Besylate (Norvasc) 10 mg PO DAILY [facility] Last Admin: 01/19/17 09:27 Dose: 10 mg Aspirin (Ecotrin) 81 mg PO DAILY [facility] Last Admin: 01/19/17 09:25 Dose: 81 mg Atorvastatin Calcium (Lipitor) 20 mg PO DAILY [facility] Last Admin: 01/19/17 09:26 Dose: 20 mg Carvedilol (Coreg) 6.25 mg PO Q12 NOAH Last Admin: 01/19/17 09:26 Dose: 6.25 mg Hydralazine HCl (Apresoline) 25 mg PO BID [facility] Last Admin: 01/19/17 09:26 Dose: 25 mg Heparin Sodium/Dextrose (Heparin 25,000 Units/250ml In D5w) 25,000 units in 250 mls @ 7 mls/hr IV .Q24H NOAH PRN Reason: Protocol Last Admin: 01/19/17 09:30 Dose: 7 mls/hr Insulin Human Regular (Humulin R) 0 units SC ACHS NOAH PRN Reason: Protocol Last Admin: 01/19/17 08:00 Dose: Not Given Ondansetron HCl (Zofran Inj) 4 mg IVP Q4 PRN PRN Reason: Nausea/Vomiting - Labs Labs: 01/19/17 06:00 01/19/17 06:00 PT 11.5 Seconds (9.8-13.1) 01/19/17 06:00 INR 1.1 (0.9-1.2) 01/19/17 06:00 APTT 41.7 Seconds (25.6-37.1) H D 01/19/17 06:00 - Constitutional Appears: No Acute Distress - Head Exam Head Exam: NORMAL INSPECTION - Eye Exam Eye Exam: Normal appearance Pupil Exam: NORMAL ACCOMODATION - ENT Exam ENT Exam: Mucous Membranes Moist - Respiratory Exam Respiratory Exam: NORMAL BREATHING PATTERN - Cardiovascular Exam Cardiovascular Exam: Bradycardia, REGULAR RHYTHM, +S1, +S2 Additional comments: hr 40s - GI/Abdominal Exam GI & Abdominal Exam: Soft. absent: Tenderness Additional comments: +bowel sounds - Rectal Exam Rectal Exam: Deferred - Extremities Exam Extremities Exam: absent: Pedal Edema, Tenderness - Neurological Exam Neurological Exam: Alert, Awake, CN II-XII Intact - Psychiatric Exam Psychiatric exam: Normal Affect, Normal Mood - Skin Skin Exam: Dry, Intact Assessment and Plan - Assessment and Plan (Free Text) Assessment: 89 years old male with hx of HLD, HTN, DM II, CAD s/p Stents and CABG, admitted for diarrhea x 5 days, associated is nausea with generalized weakness. Patient is clinically improved, still has watery stool but less than on admission. Patient needs cardiac cathertization, echo with good ejection fraction. Will discuss with Dr. Hawthorne. Case was d/w Dr. Noble. Diffuse Enteritis, etiology unclear - pending Stool Culture, c. diff negative - tolerating regular diet NSTEMI - Consult cardiology Dr Noble, awaiting input from Dr. Hawthorne. - Catherization was declined, patient's son would like for patient to be transferred to [facility]. - ECHO report EF: 50-55% no wall motion abnormalities reported. - ASA/ Statin/ Heparin IV drip/ Beta Esmer Acute Kidney Injust - resolved DM II - Diabetic Diet - Regular Insulin Sliding scale according to accucheck - HbA1c:8.7 HTN - Amlodipine/ Coreg/ Hydralazine DVT prophylaxis on heparin drip <Rae Rosas - Last Filed: 01/20/17 09:17> Objective - Vital Signs/Intake and Output Vital Signs (last 24 hours): Temp Pulse Resp BP Pulse Ox 98 F 67 18 168/64 H 98 01/20/17 08:11 01/20/17 08:21 01/20/17 08:11 01/20/17 08:21 01/20/17 08:11 - Medications Medications: Current Medications Amlodipine Besylate (Norvasc) 10 mg PO DAILY [facility] Last Admin: 01/20/17 08:21 Dose: 10 mg Aspirin (Ecotrin) 81 mg PO DAILY [facility] Last Admin: 01/20/17 08:19 Dose: 81 mg Atorvastatin Calcium (Lipitor) 20 mg PO DAILY [facility] Last Admin: 01/20/17 08:20 Dose: 20 mg Carvedilol (Coreg) 6.25 mg PO Q12 [facility] Last Admin: 01/20/17 08:18 Dose: 6.25 mg Enoxaparin Sodium (Lovenox) 60 mg SC Q12 [facility] PRN Reason: Protocol Last Admin: 01/20/17 08:20 Dose: 60 mg Hydralazine HCl (Apresoline) 25 mg PO BID [facility] Last Admin: 01/20/17 08:17 Dose: 25 mg Insulin Human Regular (Humulin R) 0 units SC ACHS [facility] PRN Reason: Protocol Last Admin: 01/20/17 08:20 Dose: Not Given Loperamide HCl (Imodium) 2 mg PO QID PRN PRN Reason: Diarrhea Ondansetron HCl (Zofran Inj) 4 mg IVP Q4 PRN PRN Reason: Nausea/Vomiting Saccharomyces Boulardii (Florastor) 250 mg PO BID [facility] Last Admin: 01/20/17 08:19 Dose: 250 mg - Labs Labs: 01/19/17 06:00 01/19/17 06:00 PT 11.5 Seconds (9.8-13.1) 01/19/17 06:00 INR 1.1 (0.9-1.2) 01/19/17 06:00 APTT 32.5 Seconds (25.6-37.1) D 01/20/17 05:30 - Skin Additional comments: ADDENDUM ATTENDING NOTE PATIENT SEEN AND EXAMINED. CASE DISCUSSED WITH RESIDENT. AGREE WITH FINDINGS AND PLAN.
[2017-01-19] MEDS: Saccharomyces Boulardi 250 mg Cap PO SCH (17:25)
--- NOTE | 2017-01-19 18:25 | PN ---
DATE: SUBJECTIVE: The patient is having chest pain. Diarrhea has improved. He is tolerating regular diet. Occasional sinus bradycardia on the monitor in the 50s but no dizziness. PHYSICAL EXAMINATION VITAL SIGNS: Blood pressure 140/49, heart rate 53, temperature 97.8, and respirations 18. HEENT: Normocephalic. CHEST: Clear. HEART: Heart sounds are regular. EXTREMITIES: No edema. LABORATORY DATA: Hemoglobin and hematocrit 11.2 and 32.7, white count within normal limits, SMA-7 is within normal limit except for glucose of 147 and chloride of 110. Stool C. diff antigen is negative. Official echocardiography report, asymmetric septal hypertrophy. Normal left ventricular systolic function, [id number] mitral insufficiency and aortic valve sclerosis. ASSESSMENT: 1. Non-ST elevation myocardial infarction. 2. Diarrhea. 3. Mild sinus bradycardia. 4. Hypertension.' 5. History of coronary artery disease, status post triple bypass surgery. CONDITIONS: Continue Coreg 6.25 mg twice a day, aspirin 81 mg once a day, Lipitor 20 mg once a day, Lovenox 46 mg subcutaneous twice a day. The son has contacted the power marketer, Dr. Hawthorne, but has not heard from him yet, also the has contacted him. The son left the decision of cardiac cath to his outpatient power marketer, Dr. Hawthorne and no decision has been made yet. If decision is made, then patient will be started on Plavix. Dayne Noble MD
[2017-01-19] MEDS ORDERED: Enoxaparin 60 mg Syringe SC SCH (21:00)
[2017-01-19] MEDS: Enoxaparin 60 mg Syringe SC SCH (21:30)
[2017-01-20] MEDS: Saccharomyces Boulardi 250 mg Cap PO SCH ×2 (08:19→16:34)
[2017-01-20] MEDS: Enoxaparin 60 mg Syringe SC SCH ×2 (08:20→22:17)
[2017-01-20] MEDS: Insulin Regular 100 units/ml SC SCH ×4 (08:20→22:16)
--- NOTE | 2017-01-20 14:04 | CP.PCM.PN ---
<Rolf Tinajero - Last Filed: 01/20/17 13:59> Subjective - Date & Time of Evaluation Date of Evaluation: 01/20/17 Time of Evaluation: 10:00 - Subjective Subjective: Patient seen and examined at bedside. No acute events overnight. No fever, chills, abdominal pain, chest pain, sob, or palpitations. Patient states he feels well. No diarrhea. Last BM 2 days ago. No nausea/vomiting. Tolerating PO diet well. Patient awaiting transfer for cath at [facility] (Former[facility]). Objective - Vital Signs/Intake and Output Vital Signs (last 24 hours): Temp Pulse Resp BP Pulse Ox 97.5 F L 48 L 18 144/52 L 100 01/20/17 12:20 01/20/17 12:20 01/20/17 12:20 01/20/17 12:20 01/20/17 12:20 - Medications Medications: Current Medications Amlodipine Besylate (Norvasc) 10 mg PO DAILY [facility] Last Admin: 01/20/17 08:21 Dose: 10 mg Aspirin (Ecotrin) 81 mg PO DAILY [facility] Last Admin: 01/20/17 08:19 Dose: 81 mg Atorvastatin Calcium (Lipitor) 20 mg PO DAILY [facility] Last Admin: 01/20/17 08:20 Dose: 20 mg Carvedilol (Coreg) 6.25 mg PO Q12 [facility] Last Admin: 01/20/17 08:18 Dose: 6.25 mg Enoxaparin Sodium (Lovenox) 60 mg SC Q12 [facility] PRN Reason: Protocol Last Admin: 01/20/17 08:20 Dose: 60 mg Hydralazine HCl (Apresoline) 25 mg PO BID [facility] Last Admin: 01/20/17 08:17 Dose: 25 mg Insulin Human Regular (Humulin R) 0 units SC ACHS [facility] PRN Reason: Protocol Last Admin: 01/20/17 13:26 Dose: 4 units Loperamide HCl (Imodium) 2 mg PO QID PRN PRN Reason: Diarrhea Ondansetron HCl (Zofran Inj) 4 mg IVP Q4 PRN PRN Reason: Nausea/Vomiting Saccharomyces Boulardii (Florastor) 250 mg PO BID [facility] Last Admin: 01/20/17 08:19 Dose: 250 mg - Labs Labs: 01/19/17 06:00 01/19/17 06:00 PT 11.5 Seconds (9.8-13.1) 01/19/17 06:00 INR 1.1 (0.9-1.2) 01/19/17 06:00 APTT 32.5 Seconds (25.6-37.1) D 01/20/17 05:30 - Constitutional Appears: Well, Non-toxic, No Acute Distress - Head Exam Head Exam: ATRAUMATIC, NORMAL INSPECTION, NORMOCEPHALIC - Eye Exam Eye Exam: Normal appearance - Respiratory Exam Respiratory Exam: Clear to Ausculation Bilateral, NORMAL BREATHING PATTERN - Cardiovascular Exam Cardiovascular Exam: REGULAR RHYTHM, +S1, +S2 - GI/Abdominal Exam GI & Abdominal Exam: Soft, Normal Bowel Sounds. absent: Tenderness - Extremities Exam Extremities Exam: Normal Inspection. absent: Pedal Edema - Back Exam Back Exam: NORMAL INSPECTION - Neurological Exam Neurological Exam: Alert, Awake - Psychiatric Exam Psychiatric exam: Normal Affect, Normal Mood - Skin Skin Exam: Dry, Intact, Normal Color, Warm Assessment and Plan - Assessment and Plan (Free Text) Assessment: 89 years old male with hx of HLD, HTN, DM II, CAD s/p Stents and CABG, admitted for diarrhea x 5 days, associated is nausea with generalized weakness. Patient is clinically improved and stable regarding diarrhea. Patient needs cardiac cathertization, echo with good ejection fraction. 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 Diffuse Enteritis, etiology unclear - pending Stool Culture, c. diff negative - tolerating regular diet - Blood cx NGTD - Last BM 2 days ago, no diarrhea, fever, or WBC - Medically stable, no need for abx at this time NSTEMI - No chest pain, sob, diaphoresis episodes since admission - Consult cardiology Dr Noble, awaiting input from Dr. Hawthorne. - Patient and son would like for patient to be transferred to [facility] ([facility]) under Dr. Ruiz care - Pending transfer - ECHO report EF: 50-55% no wall motion abnormalities reported. - ASA/ Statin/Lovenox/ Beta Esmer DM II - Diabetic Diet - Regular Insulin Sliding scale according to accucheck - HbA1c:8.7 HTN - Amlodipine/ Coreg/ Hydralazine DVT prophylaxis on Lovenox therapeutic <Rae Rosas - Last Filed: 01/21/17 07:17> Objective - Vital Signs/Intake and Output Vital Signs (last 24 hours): Temp Pulse Resp BP Pulse Ox 97.9 F 49 L 20 164/57 H 96 01/21/17 04:43 01/21/17 04:43 01/21/17 04:43 01/21/17 04:43 01/21/17 04:43 - Medications Medications: Current Medications Amlodipine Besylate (Norvasc) 10 mg PO DAILY [facility] Last Admin: 01/20/17 08:21 Dose: 10 mg Aspirin (Ecotrin) 81 mg PO DAILY [facility] Last Admin: 01/20/17 08:19 Dose: 81 mg Atorvastatin Calcium (Lipitor) 20 mg PO DAILY [facility] Last Admin: 01/20/17 08:20 Dose: 20 mg Carvedilol (Coreg) 6.25 mg PO Q12 [facility] Last Admin: 01/20/17 22:02 Dose: Not Given Enoxaparin Sodium (Lovenox) 60 mg SC Q12 [facility] PRN Reason: Protocol Last Admin: 01/20/17 22:17 Dose: Not Given Hydralazine HCl (Apresoline) 25 mg PO BID [facility] Last Admin: 01/20/17 16:34 Dose: Not Given Insulin Human Regular (Humulin R) 0 units SC ACHS [facility] PRN Reason: Protocol Last Admin: 01/21/17 06:54 Dose: Not Given Loperamide HCl (Imodium) 2 mg PO QID PRN PRN Reason: Diarrhea Ondansetron HCl (Zofran Inj) 4 mg IVP Q4 PRN PRN Reason: Nausea/Vomiting Saccharomyces Boulardii (Florastor) 250 mg PO BID [facility] Last Admin: 01/20/17 16:34 Dose: 250 mg - Labs Labs: 01/19/17 06:00 01/19/17 06:00 PT 11.5 Seconds (9.8-13.1) 01/19/17 06:00 INR 1.1 (0.9-1.2) 01/19/17 06:00 APTT 32.5 Seconds (25.6-37.1) D 01/20/17 05:30 - Skin Additional comments: ADDENDUM ATTENDING NOTE PATIENT SEEN AND EXAMINED. CASE DISCUSSED WITH RESIDENT. AGREE WITH FINDINGS AND PLAN.
--- NOTE | 2017-01-20 23:29 | PN ---
DATE: SUBJECTIVE: The patient denies any chest pain, abdominal pain or diarrhea. PHYSICAL EXAMINATION VITAL SIGNS: Blood pressure 135/43, heart rate 61, temperature 97.3, and respirations 14. HEENT: Normocephalic. NECK: No JVD. CHEST: Clear. HEART: S1 and S2 regular. ABDOMEN: Soft. EXTREMITIES: No edema. LABORATORY DATA: Today's blood sugars are 145, 259 and 215. ASSESSMENT: 1. Status post non-ST elevation myocardial infarction. 2. Coronary artery disease, status post coronary artery bypass surgery. 3. Improved diarrhea and enteritis. 4. Mild anemia. CONDITIONS: Continue hydralazine 25 mg once a day, Coreg 6.25 mg twice a day, aspirin 81 mg once a day, Lipitor 20 mg once a day, therapeutic subcutaneous Lovenox 60 mg twice a day, Norvasc 10 mg once a day. The patient will be transferred to [facility] for cardiac catheterization in a.m. Dayne Noble MD
[2017-01-20 23:51] VITALS: O2SAT 96
[2017-01-21 04:43] VITALS: BP 164/57; PULSE 49; RESP 20; TEMP 97.9
[2017-01-21] MEDS: Insulin Regular 100 units/ml SC SCH (06:54)
--- NOTE | 2017-01-21 08:37 | CON ---
DATE: 01/18/2017 REFERRING PHYSICIAN: Dayne Noble MD REASON FOR CONSULTATION: Diarrhea. HISTORY OF PRESENT ILLNESS: This is an 89-year-old male who is well known to my office service with history of , cardiac disease, diabetes and then he comes in with chest pain, chest tightness, NSTEMI, had diarrhea. . No one has got sick. Diarrhea has improved. Pain is improved. No nausea. No vomiting. No fevers or chills. Currently lying comfortable, in no apparent distress. PAST MEDICAL HISTORY: As above. PAST SURGICAL HISTORY: As above. MEDICATIONS: Have been reviewed. REVIEW OF SYSTEMS: All other systems have been reviewed and negative apart from the HPI. PHYSICAL EXAMINATION: VITAL SIGNS: In the hospital grossly remarkable. GENERAL: Pleasant elderly appearing male, lying in bed comfortable, in no apparent distress. HEENT: Head is normocephalic and atraumatic. Eyes, pupils are equal, round, and reactive to light bilaterally. No conjunctival pallor or icterus. NECK: Supple. Normal range of motion. No lymphadenopathy appreciated. LUNGS: Coarse breath sounds bilaterally. HEART: S1 and S2. Regular rate and rhythm. No murmurs appreciated. ABDOMEN: Soft and nontender. Bowel sounds present. No rebound. No guarding. RECTAL: Deferred. EXTREMITIES: Pulses felt bilaterally. SKIN: Warm, dry and intact. NEUROLOGIC: A and O x3. LABORATORY DATA: Labs reviewed. WBC , hemoglobin 11.3 and hematocrit 34.3. INR 1.2. Troponin is markedly positive x2. Lipase is 225. C. diff is negative. CAT scan shows enteritis. ASSESSMENT AND PLAN: This is an 89-year-old male with non-ST segment elevation myocardial infarction and enteritis. From GI standpoint, Clostridium difficile is done. OMP and C&S are pending. Antibiotics, advance diet as tolerated. Cardiac workup in progress. Thank you for the consult. Higinio Dawn MD/ PhD cc:
--- NOTE | 2017-01-21 16:09 | CP.PCM.DIS ---
<Eugene Santana - Last Filed: 01/21/17 17:57> Provider - Provider Date of Admission: 01/18/17 01:25 Attending physician: Matias Veronica MD Time Spent in preparation of Discharge (in minutes): 35 Diagnosis - Discharge Diagnosis (1) NSTEMI (non-ST elevated myocardial infarction) Status: Acute Comment: Treated with heparin drip then switched to therapeutic lovenox for cardiac cath at [facility] with Dr. Hawthorne. (2) Enteritis Status: Acute Comment: stool cultures negative (3) Acute renal failure Status: Resolved Hospital Course - Lab Results Lab Results: Micro Results 01/18/17 20:01 Nose MRSA Culture (Admit) - Final MRSA NOT DETECTED 01/18/17 10:19 Stool Stool Culture - Final NO SALMONELLA, SHIGELLA OR CAMPYLOBACTER ISOLATED. 01/18/17 08:35 Naris MRSA Culture (Admit) - Final MRSA NOT DETECTED Most Recent Lab Values WBC 5.2 K/uL (4.8-10.8) 01/19/17 06:00 RBC 3.45 Mil/uL (4.40-5.90) L 01/19/17 06:00 Hgb 11.2 g/dL (12.0-18.0) L 01/19/17 06:00 Hct 32.7 % (35.0-51.0) L 01/19/17 06:00 MCV 94.9 fl (80.0-94.0) H 01/19/17 06:00 MCH 32.5 pg (27.0-31.0) H 01/19/17 06:00 MCHC 34.3 g/dL (33.0-37.0) 01/19/17 06:00 RDW 14.1 % (11.5-14.5) 01/19/17 06:00 Plt Count 161 K/uL (130-400) 01/19/17 06:00 MPV 9.6 fl (7.2-11.7) 01/18/17 04:20 Neut % (Auto) 76.3 % (50.0-75.0) H 01/17/17 21:35 Lymph % (Auto) 13.0 % (20.0-40.0) L 01/17/17 21:35 Fajardo % (Auto) 9.6 % (0.0-10.0) 01/17/17 21:35 Eos % (Auto) 0.7 % (0.0-4.0) 01/17/17 21:35 Baso % (Auto) 0.4 % (0.0-2.0) 01/17/17 21:35 Neut # 7.5 K/uL (1.8-7.0) H 01/17/17 21:35 Lymph # 1.3 K/uL (1.0-4.3) 01/17/17 21:35 Fajardo # 0.9 K/uL (0.0-0.8) H 01/17/17 21:35 Eos # 0.1 K/uL (0.0-0.7) 01/17/17 21:35 Baso # 0.0 K/uL (0.0-0.2) 01/17/17 21:35 PT 11.5 Seconds (9.8-13.1) 01/19/17 06:00 INR 1.1 (0.9-1.2) 01/19/17 06:00 APTT 32.5 Seconds (25.6-37.1) D 01/20/17 05:30 Sodium 139 mmol/l (132-148) 01/19/17 06:00 Potassium 4.3 MMOL/L (3.6-5.0) 01/19/17 06:00 Chloride 110 mmol/L (98-107) H 01/19/17 06:00 Carbon Dioxide 22 mmol/L (22-30) 01/19/17 06:00 Anion Gap 11 (10-20) 01/19/17 06:00 BUN 18 mg/dl (9-20) 01/19/17 06:00 Creatinine 1.1 mg/dL (0.8-1.5) 01/19/17 06:00 Est GFR ( Amer) > 60 01/19/17 06:00 Est GFR (Non-Af Amer) > 60 01/19/17 06:00 POC Glucose (mg/dL) 122 mg/dL (65-110) H 01/21/17 05:11 Random Glucose 147 mg/dL (75-110) H 01/19/17 06:00 Hemoglobin A1c 8.7 % (4.2-6.5) H 01/18/17 04:20 Calcium 9.1 mg/dL (8.4-10.2) 01/19/17 06:00 Total Bilirubin 0.4 mg/dl (0.2-1.3) 01/18/17 04:20 AST 48 U/L (17-59) 01/18/17 04:20 ALT 17 U/L (21-72) L D 01/18/17 04:20 Alkaline Phosphatase 45 U/L (38-126) 01/18/17 04:20 Troponin I 3.4600 ng/mL (0.00-0.120) H* 01/18/17 10:50 Total Protein 6.9 G/DL (6.3-8.2) 01/18/17 04:20 Albumin 3.7 g/dL (3.5-5.0) 01/18/17 04:20 Globulin 3.2 gm/dL (2.2-3.9) 01/18/17 04:20 Albumin/Globulin Ratio 1.2 (1.0-2.1) 01/18/17 04:20 Triglycerides 83 mg/DL (0-149) 01/18/17 04:20 Cholesterol 120 mg/dL (0-199) 01/18/17 04:20 LDL Cholesterol Direct 71 mg/dL (0-129) 01/18/17 04:20 HDL Cholesterol 24 MG/DL (30-70) L 01/18/17 04:20 Amylase 166 U/L (30-110) H 01/18/17 10:50 Lipase 325 U/L (23-300) H 01/18/17 10:50 Urine Color Olivia (YELLOW) 01/17/17 22:30 Urine Clarity Cloudy (Clear) 01/17/17 22:30 Urine pH 5.0 (5.0-8.0) 01/17/17 22:30 Ur Specific [place] 1.020 (1.003-1.030) 01/17/17 22:30 Urine Protein 100 mg/dL (NEGATIVE) 01/17/17 22:30 Urine Glucose (UA) Neg mg/dL (Normal) 01/17/17 22:30 Urine Ketones Negative mg/dL (NEGATIVE) 01/17/17 22:30 Urine Blood Negative (NEGATIVE) 01/17/17 22:30 Urine Nitrate Negative (NEGATIVE) 01/17/17 22:30 Urine Bilirubin Negative (NEGATIVE) 01/17/17 22:30 Urine Urobilinogen 0.2-1.0 mg/dL (0.2-1.0) 01/17/17 22:30 Ur Leukocyte Esterase Neg Damon/uL (Negative) 01/17/17 22:30 Urine RBC (Auto) 3 /hpf (0-3) 01/17/17 22:30 Urine Microscopic WBC 2 /hpf (0-5) 01/17/17 22:30 Ur Squamous Epith Cells < 1 /hpf (0-5) 01/17/17 22:30 Urine Bacteria Rare (<OCC) 01/17/17 22:30 Hyaline Casts 3-5 /hpf (0-2) H 01/17/17 22:30 C. difficile Ag & Toxin Negative (NEGATIVE) 01/18/17 10:19 Blood Type B POSITIVE 01/17/17 21:35 Antibody Screen Negative 01/17/17 21:35 BBK History Checked Patient has bt 01/17/17 21:35 - Hospital Course Hospital Course: 89 year old male presented with diarrhea x 4-5 days, admitted for NSTEMI with Acute Renal Failure. Patient had watery diarrhea during admission, only 1-2 times per day, all blood, urine and stool cultures were negative. Patient was seen by cardiology, Dr. Huber, heparin drip was started and cardiac catheterization was recommended but declined by the family. Pt to be transferred to [facility] for cardiac catheterization with patients outpatient stock tracer. Patient continued to complain of diarrhea, but no chest pain, dyspnea, abdominal pain, nausea, vomiting or pedal edema. He was tolerating regular diet, blood glucose was controlled with insulin. Patient was not evaluated this morning, he had already been transferred. - Date & Time of H&P Date of H&P: 01/18/17 Time of H&P: 01:53 Discharge Plan - Follow Up Plan Condition: FAIR Disposition: Trans to Other Acute Care Hosp Instructions: Acute Kidney Injury (DC) <Leonid Ashby - Last Filed: 01/22/17 06:42> Provider - Provider Date of Admission: 01/18/17 01:25 Attending physician: Matias Veronica MD Hospital Course - Lab Results Lab Results: Micro Results 01/18/17 20:01 Nose MRSA Culture (Admit) - Final MRSA NOT DETECTED 01/18/17 10:19 Stool Stool Culture - Final NO SALMONELLA, SHIGELLA OR CAMPYLOBACTER ISOLATED. 01/18/17 08:35 Naris MRSA Culture (Admit) - Final MRSA NOT DETECTED Most Recent Lab Values WBC 5.2 K/uL (4.8-10.8) 01/19/17 06:00 RBC 3.45 Mil/uL (4.40-5.90) L 01/19/17 06:00 Hgb 11.2 g/dL (12.0-18.0) L 01/19/17 06:00 Hct 32.7 % (35.0-51.0) L 01/19/17 06:00 MCV 94.9 fl (80.0-94.0) H 01/19/17 06:00 MCH 32.5 pg (27.0-31.0) H 01/19/17 06:00 MCHC 34.3 g/dL (33.0-37.0) 01/19/17 06:00 RDW 14.1 % (11.5-14.5) 01/19/17 06:00 Plt Count 161 K/uL (130-400) 01/19/17 06:00 MPV 9.6 fl (7.2-11.7) 01/18/17 04:20 Neut % (Auto) 76.3 % (50.0-75.0) H 01/17/17 21:35 Lymph % (Auto) 13.0 % (20.0-40.0) L 01/17/17 21:35 Fajardo % (Auto) 9.6 % (0.0-10.0) 01/17/17 21:35 Eos % (Auto) 0.7 % (0.0-4.0) 01/17/17 21:35 Baso % (Auto) 0.4 % (0.0-2.0) 01/17/17 21:35 Neut # 7.5 K/uL (1.8-7.0) H 01/17/17 21:35 Lymph # 1.3 K/uL (1.0-4.3) 01/17/17 21:35 Fajardo # 0.9 K/uL (0.0-0.8) H 01/17/17 21:35 Eos # 0.1 K/uL (0.0-0.7) 01/17/17 21:35 Baso # 0.0 K/uL (0.0-0.2) 01/17/17 21:35 PT 11.5 Seconds (9.8-13.1) 01/19/17 06:00 INR 1.1 (0.9-1.2) 01/19/17 06:00 APTT 32.5 Seconds (25.6-37.1) D 01/20/17 05:30 Sodium 139 mmol/l (132-148) 01/19/17 06:00 Potassium 4.3 MMOL/L (3.6-5.0) 01/19/17 06:00 Chloride 110 mmol/L (98-107) H 01/19/17 06:00 Carbon Dioxide 22 mmol/L (22-30) 01/19/17 06:00 Anion Gap 11 (10-20) 01/19/17 06:00 BUN 18 mg/dl (9-20) 01/19/17 06:00 Creatinine 1.1 mg/dL (0.8-1.5) 01/19/17 06:00 Est GFR ( Amer) > 60 01/19/17 06:00 Est GFR (Non-Af Amer) > 60 01/19/17 06:00 POC Glucose (mg/dL) 122 mg/dL (65-110) H 01/21/17 05:11 Random Glucose 147 mg/dL (75-110) H 01/19/17 06:00 Hemoglobin A1c 8.7 % (4.2-6.5) H 01/18/17 04:20 Calcium 9.1 mg/dL (8.4-10.2) 01/19/17 06:00 Total Bilirubin 0.4 mg/dl (0.2-1.3) 01/18/17 04:20 AST 48 U/L (17-59) 01/18/17 04:20 ALT 17 U/L (21-72) L D 01/18/17 04:20 Alkaline Phosphatase 45 U/L (38-126) 01/18/17 04:20 Troponin I 3.4600 ng/mL (0.00-0.120) H* 01/18/17 10:50 Total Protein 6.9 G/DL (6.3-8.2) 01/18/17 04:20 Albumin 3.7 g/dL (3.5-5.0) 01/18/17 04:20 Globulin 3.2 gm/dL (2.2-3.9) 01/18/17 04:20 Albumin/Globulin Ratio 1.2 (1.0-2.1) 01/18/17 04:20 Triglycerides 83 mg/DL (0-149) 01/18/17 04:20 Cholesterol 120 mg/dL (0-199) 01/18/17 04:20 LDL Cholesterol Direct 71 mg/dL (0-129) 01/18/17 04:20 HDL Cholesterol 24 MG/DL (30-70) L 01/18/17 04:20 Amylase 166 U/L (30-110) H 01/18/17 10:50 Lipase 325 U/L (23-300) H 01/18/17 10:50 Urine Color Olivia (YELLOW) 01/17/17 22:30 Urine Clarity Cloudy (Clear) 01/17/17 22:30 Urine pH 5.0 (5.0-8.0) 01/17/17 22:30 Ur Specific [place] 1.020 (1.003-1.030) 01/17/17 22:30 Urine Protein 100 mg/dL (NEGATIVE) 01/17/17 22:30 Urine Glucose (UA) Neg mg/dL (Normal) 01/17/17 22:30 Urine Ketones Negative mg/dL (NEGATIVE) 01/17/17 22:30 Urine Blood Negative (NEGATIVE) 01/17/17 22:30 Urine Nitrate Negative (NEGATIVE) 01/17/17 22:30 Urine Bilirubin Negative (NEGATIVE) 01/17/17 22:30 Urine Urobilinogen 0.2-1.0 mg/dL (0.2-1.0) 01/17/17 22:30 Ur Leukocyte Esterase Neg Damon/uL (Negative) 01/17/17 22:30 Urine RBC (Auto) 3 /hpf (0-3) 01/17/17 22:30 Urine Microscopic WBC 2 /hpf (0-5) 01/17/17 22:30 Ur Squamous Epith Cells < 1 /hpf (0-5) 01/17/17 22:30 Urine Bacteria Rare (<OCC) 01/17/17 22:30 Hyaline Casts 3-5 /hpf (0-2) H 01/17/17 22:30 C. difficile Ag & Toxin Negative (NEGATIVE) 01/18/17 10:19 Blood Type B POSITIVE 01/17/17 21:35 Antibody Screen Negative 01/17/17 21:35 BBK History Checked Patient has bt 01/17/17 21:35 Attending/Attestation - Attestation I have personally seen and examined this patient.: Yes I have reviewed all pertinent clinical information, including history, physical exam and plan: Yes
== END 2017-01-21 06:30 | disposition short-term general hospital (02) | DRG 281 ==
LOC: H.ER 20:39 → H.EROBSV 21:29 → H.ERHOLD 01-18 01:25 → OBSVTOIN 01-18 01:25 → H.ICU/CCU 01-18 03:12 → H.TEL 01-18 16:24
PROVIDERS: ADMIT Family Medicine; ATTEND Family Medicine
DX: I21.4 Non-ST elevation (NSTEMI) myocardial infarction (principal); N17.9 Acute kidney failure, unspecified; E27.40 Unspecified adrenocortical insufficiency; R00.1 Bradycardia, unspecified; J44.9 Chronic obstructive pulmonary disease, unspecified; D64.9 Anemia, unspecified; E11.9 Type 2 diabetes mellitus without complications; I10 Essential (primary) hypertension; E78.5 Hyperlipidemia, unspecified; I25.10 Atherosclerotic heart disease of native coronary artery without angina pectoris; K52.9 Noninfective gastroenteritis and colitis, unspecified; Z85.01 Personal history of malignant neoplasm of esophagus; Z85.038 Personal history of other malignant neoplasm of large intestine; E78.00 Pure hypercholesterolemia, unspecified; Z87.891 Personal history of nicotine dependence; Z95.1 Presence of aortocoronary bypass graft; Z95.5 Presence of coronary angioplasty implant and graft; Z92.3 Personal history of irradiation